=== PATIENT | female | born 1960 | race Caucasian/White ===

== ENCOUNTER → 2018-06-30 | Outpatient (CLI) | payer OTHER ==
--- NOTE | 2018-06-30 16:59 | Diagnostic Imaging Report ---
RENAL ULTRASOUND TECHNIQUE: Ultrasound evaluation of the KIDNEYS. Color Doppler evaluation was utilized to supplement the evaluation. HISTORY: Hematuria COMPARISON: None available. DISCUSSION: No echogenic renal stone is identified. RIGHT KIDNEY: The right kidney measures 10 cm in length. The cortex measures 1.7 cm in thickness. Parenchyma is within normal limits. No hydronephrosis or solid mass lesions. LEFT KIDNEY: The left kidney measures 12 cm in length. The cortex measures 2 cm in thickness. A 1 x 0.9 x 0.9 cm anechoic focus at the medial aspect of the interpolar region, compatible with an incidental simple cyst. No hydronephrosis or solid mass lesions. BLADDER: Bilaterally, the ureteral jets are seen during the exam. IMPRESSION: 1. No hydronephrosis or renal stone. 2. In the setting of gross hematuria, if direct visualization is not planned, a CT of the abdomen and pelvis with contrast (CT urogram) may be warranted for further evaluation. Signed by: Dr. Dwayne Moon D.O., M.M.M. on 06/30/2018 4:55 PM
== END ==
LOC: US 16:12
PROVIDERS: ATTEND Urology
DX: R31.9 Hematuria, unspecified (principal)
CPT/HCPCS: 76770